=== PATIENT | female | born 1945 | race Caucasian/White ===

== ENCOUNTER → 2016-10-20 | Outpatient (REF) | PROVIDERS: ATTEND Internal Medicine | DX: R19.7 Diarrhea, unspecified (principal) ==

== ENCOUNTER → 2016-10-21 | Outpatient (REF) ==
[2016-10-21 10:34] LABS: MEAN CORPUSCULAR HEMOGLOBIN 30.7 pg (27.0-33.0); MEAN CORPUSCULAR HGB CONC 33.6 g/dl (32.0-36.5); MEAN CORPUSCULAR VOLUME 91.4 fl (80.0-96.0); RED CELL DISTRIBUTION WIDTH 13.6 % (11.5-14.5); WHITE BLOOD COUNT 14.6 K/mm3 (4.0-10.0)
== END ==
PROVIDERS: ATTEND Internal Medicine
DX: Z79.01 Long term (current) use of anticoagulants (principal)

== ENCOUNTER → 2016-10-22 | Outpatient (REF) ==
[2016-10-22 10:40] LABS: MEAN CORPUSCULAR HEMOGLOBIN 30.8 pg (27.0-33.0); MEAN CORPUSCULAR HGB CONC 33.2 g/dl (32.0-36.5); MEAN CORPUSCULAR VOLUME 92.6 fl (80.0-96.0); RED CELL DISTRIBUTION WIDTH 13.5 % (11.5-14.5); WHITE BLOOD COUNT 14.2 K/mm3 (4.0-10.0)
== END ==
PROVIDERS: ATTEND Internal Medicine
DX: D72.829 Elevated white blood cell count, unspecified (principal)

== ENCOUNTER → 2016-10-24 | Outpatient (REF) | payer BC ==
[2016-10-24 14:05] LABS: MEAN CORPUSCULAR HEMOGLOBIN 31.2 pg (27.0-33.0); MEAN CORPUSCULAR HGB CONC 33.5 g/dl (32.0-36.5); MEAN CORPUSCULAR VOLUME 93.3 fl (80.0-96.0); RED CELL DISTRIBUTION WIDTH 13.4 % (11.5-14.5); WHITE BLOOD COUNT 12.1 K/mm3 (4.0-10.0)
== END ==
PROVIDERS: ATTEND Internal Medicine
DX: D72.829 Elevated white blood cell count, unspecified (principal)

== ENCOUNTER → 2016-10-28 | Outpatient (REF) ==
[2016-10-28 11:21] LABS: MEAN CORPUSCULAR HGB CONC 33.3 g/dl (32.0-36.5); RED CELL DISTRIBUTION WIDTH 13.2 % (11.5-14.5); WHITE BLOOD COUNT 11.6 K/mm3 (4.0-10.0)
== END ==
PROVIDERS: ATTEND Internal Medicine
DX: Z79.01 Long term (current) use of anticoagulants (principal)

== ENCOUNTER → 2016-12-17 | Outpatient (REF) | payer BC | LOC: M SFHCLERA 14:17 | PROVIDERS: ATTEND Family Medicine | DX: E11.22 Type 2 diabetes mellitus with diabetic chronic kidney disease (principal) ==

== ENCOUNTER → 2017-10-27 | Outpatient (REF) | payer BC ==
[2017-10-27 20:37] LABS: MEAN CORPUSCULAR HEMOGLOBIN 31.6 pg (27.0-33.0); MEAN CORPUSCULAR HGB CONC 32.6 g/dl (32.0-36.5); MEAN CORPUSCULAR VOLUME 96.8 fl (80.0-96.0); PLATELET COUNT, AUTOMATED 234 10^3/uL (150-450); RED BLOOD COUNT 4.75 10^6/uL (4.00-5.40); RED CELL DISTRIBUTION WIDTH 14.1 % (11.5-14.5)
[2017-10-27 20:47] LABS: ADD MANUAL DIFFER YES; DIFF SLIDE NUMBER 365; POSITIVE DIFF POS FLAG; POSITIVE MORPH POS FLAG
[2017-10-27 20:54] LABS: MAGNESIUM LEVEL 1.7 MG/DL (1.8-2.4)
[2017-10-27 21:05] LABS: ATYPICAL LYMPH 5 % (0-5); BASOPHILS 1 % (0-4); EOSINOPHILS 1 % (0-5); LYMPHOCYTES 50 % (16-52); MONOCYTES 4 % (0-8); NEUTROPHILS 39 % (35-75); PLATELET ESTIMATE NORMAL (NORMAL)
[2017-10-27 22:50] LABS: ESTIMATED AVERAGE GLUCOSE 166 MG/DL (60-110); HEMOGLOBIN A1c 7.4 %
== END ==
LOC: M SFHCLERA 15:06
DX: E11.22 Type 2 diabetes mellitus with diabetic chronic kidney disease (principal); R79.0 Abnormal level of blood mineral; D72.829 Elevated white blood cell count, unspecified
CPT/HCPCS: 83735

== ENCOUNTER → 2018-05-25 | Outpatient (CLI) | payer BC ==
--- NOTE | 2018-05-25 16:08 | REP ---
Chest x-ray: Two views. History: Cough. Comparison study: Interstitial markings are diffusely somewhat prominent consistent with pulmonary fibrosis. The pleural angles are sharp. No focal infiltrate is seen. Heart is not enlarged. The aorta is calcific and tortuous. There are mild degenerative changes in the thoracic spine. Impression: Prominent pulmonary interstitial markings consistent with diffuse interstitial fibrosis. Otherwise no acute disease. Electronically Signed by Adriano Bhakta MD 05/25/2018 03:59 P
== END ==
LOC: M LRY 15:15
PROVIDERS: ATTEND Nurse Practitioner Family
DX: R91.8 Other nonspecific abnormal finding of lung field (principal)

== ENCOUNTER → 2018-08-31 | Outpatient (CLI) | payer BC ==
--- NOTE | 2018-08-31 21:30 | REP ---
Clinical: Follow up abnormal chest x-ray . Comparison: 05/25/2018 . Technique: PA and lateral. Findings: The mediastinum and cardiac silhouette are normal. The lung redd demonstrate chronic changes without acute consolidation, effusion, or pneumothorax. The skeletal structures are intact and normal. Impression: 1. No acute cardiopulmonary process. Electronically Signed by Chon Banerjee MD 08/31/2018 09:21 P
== END ==
LOC: M LRY 14:02
PROVIDERS: ATTEND Family Medicine
DX: R93.89 Abnormal findings on diagnostic imaging of other specified body structures (principal)

== ENCOUNTER → 2019-01-25 | Outpatient (REF) | payer BC ==
[2019-01-25 17:17] LABS: FREE T4 1.1 NG/DL (0.76-1.46); THYROID STIMULATING HORMONE 2.44 uIU/ML (0.358-3.740)
== END ==
LOC: M SFHCLERA 13:53
PROVIDERS: ATTEND Family Medicine
DX: R00.2 Palpitations (principal)

== ENCOUNTER → 2019-01-25 | Outpatient (REF) | payer BC | LOC: M SFHCLERA 16:22 | PROVIDERS: ATTEND Family Medicine | DX: L60.3 Nail dystrophy (principal) ==

== ENCOUNTER → 2019-10-25 | Outpatient (CLI) | payer BC ==
--- NOTE | 2019-11-22 10:52 | REP ---
RIGHT FOOT SERIES: CLINICAL: Pain over the plantar fascia. TECHNIQUE: AP, lateral, bilateral oblique views of the right foot. FINDINGS: Generalized age related arthritic changes are appreciated primarily involving the midfoot and tarsometatarsal joints. No evidence for acute fracture or dislocation. The lateral view demonstrates moderate calcaneal heel spur with prominent plantar fascia. No associated soft tissue calcification is identified. IMPRESSION: Degenerative changes and moderate calcaneal heel spur. MTDD
== END ==
LOC: M LRY 12:20
PROVIDERS: ATTEND Family Medicine
DX: M25.571 Pain in right ankle and joints of right foot (principal)

== ENCOUNTER → 2019-11-04 | Outpatient (REF) | payer BC | LOC: M SFHCLUC 15:54 | PROVIDERS: ATTEND Physician Assistant | DX: N39.0 Urinary tract infection, site not specified (principal) ==

== ENCOUNTER → 2022-06-05 | Outpatient (CLI) | payer MEDICARE | LOC: M CARPUL 08:53 | PROVIDERS: ATTEND Internal Medicine Critical Care Medicine | DX: R06.00 Dyspnea, unspecified (principal); I51.7 Cardiomegaly; I35.8 Other nonrheumatic aortic valve disorders ==

== ENCOUNTER → 2023-03-26 | Outpatient (CLI) | payer MEDICARE | LOC: M CARPUL 10:22 | PROVIDERS: ATTEND Internal Medicine Critical Care Medicine | DX: R06.00 Dyspnea, unspecified (principal) ==

== ENCOUNTER 2023-06-24 06:10 | Day surgery (SDC) | payer MEDICARE ==
[~2023-06-24] VITALS: Ht 165.1 cm; Wt 128.8 kg
[~2023-06-24 06:10] MED LIST: ACET1TAB37 PO; BIOT1CAP2 PO; BUDE0.254 INH; CINN500C15 PO; CITRTAB18 PO; CRAN400C PO; CVS5000S2 SL; D 1010004 PO; DILT120C89 PO; ELIQ5TAB PO; EZET10TA21 PO; FURO20TA2 PO; GABA-282 PO; GALZ50CA PO; INSUH10VL SC; IPRA0.00 INH; LANTINJ4 SQ; LOSA25TA13 PO; MAGN400T2 PO; METF500T13 PO; NYST-13 TOP; PANT40TA29 PO; TUMERIC PO; VITA-158 PO; VITATAB73 PO; WOMETAB PO
[2023-06-24] MEDS ORDERED: LR 1,000 ML IV SCH (06:15)
[2023-06-24] MEDS ORDERED: LIDOCAINE 2% 100MG/5ML SDV (FOR ANES.) As Ordered ONE (06:51)
[2023-06-24] MEDS ORDERED: ONDANSETRON 4MG 2ML VIAL As Ordered ONE (06:51)
[2023-06-24] MEDS ORDERED: propofoL 200 MG/20 ML VIAL As Ordered ONE (06:51)
[2023-06-24] MEDS ORDERED: ROCURONIUM BROMIDE 50MG/5ML VIAL As Ordered ONE (06:51)
[2023-06-24] MEDS ORDERED: SUGAMMADEX SODIUM 500 MG/5 ML VIAL (BRIDION) As Ordered ONE (06:51)
[2023-06-24] MEDS ORDERED: MIDAZOLAM INJ 2MG/2ML VIAL As Ordered ONE (06:56)
[2023-06-24] MEDS ORDERED: fentaNYL 100 MCG/2 ML INJECTION As Ordered ONE (06:57)
[2023-06-24] MEDS: ALBUTEROL SULFATE 2.5MG/0.5ML INH NEB SOLN INH ONE (07:12)
[2023-06-24] MEDS: LIDOCAINE PRES-FREE 2% 10ML AMP INH ONE (07:13)
[2023-06-24] MEDS: THROMBIN 20,000 UNITS KIT As Ordered ONE (07:14)
[2023-06-24] MEDS: EPINEPHrine 1MG/10ML SYRINGE 1.5IN As Ordered ONE (07:15)
[2023-06-24] MEDS: THROMBIN 5,000 UNITS VIAL As Ordered ONE (07:15)
[2023-06-24] MEDS: CETACAINE SPRAY 5GM As Ordered ONE (07:15)
[2023-06-24] MEDS ORDERED: ACETAMINOPHEN 1000MG 100ML IV BAG As Ordered ONE (07:47)
[2023-06-24] MEDS ORDERED: MORPHINE 2 MG/ML 1ML VIAL IV PRN (08:10)
[2023-06-24] MEDS ORDERED: fentaNYL 100 MCG/2 ML INJECTION IV PRN (08:10)
[2023-06-24] MEDS ORDERED: oxyCODONE 5MG TAB PO PRN (08:10)
[2023-06-24] MEDS ORDERED: ONDANSETRON 4MG 2ML VIAL IV PRN (08:10)
[2023-06-24 09:15] VITALS: BP 139/85; TEMP 98; O2SAT 92
== END 2023-06-24 09:20 | disposition home or self-care (01) ==
LOC: M SDC 06:10
PROVIDERS: ATTEND Internal Medicine Critical Care Medicine
DX: J84.9 Interstitial pulmonary disease, unspecified (principal); Z87.891 Personal history of nicotine dependence; U09.9 Post COVID-19 condition, unspecified; R06.00 Dyspnea, unspecified; Z92.21 Personal history of antineoplastic chemotherapy; Z91.041 Radiographic dye allergy status
CPT/HCPCS: 31624; 31628; 71045; 76000; 87070; 87116; 87205; 87206; 88108; 88305; 88313; J0131; J1100; J2250; J2405; J3010

== ENCOUNTER → 2023-10-16 | Outpatient (REF) | payer MEDICARE, BC ==
[~2023-10-16] MED LIST changes: -CRAN400C PO; +CRANBERRY400 MG PO
== END ==
LOC: M SFHCCLAY 16:36
PROVIDERS: ATTEND Physician Assistant
DX: R30.0 Dysuria (principal)